=== PATIENT | female | born 1965 | race Asian ===

== ENCOUNTER 2020-06-23 08:06 | Day surgery (SDC) | payer MEDICAID, SELFPAY ==
[~2020-06-23] VITALS: Ht 160 cm; Wt 53.1 kg
[2020-06-23] MEDS ORDERED: diphenhydrAMINE 50 MG/ML VIAL ONE (09:56)
[2020-06-23] MEDS ORDERED: MIDAZOLAM 5 MG/5 ML VIAL ONE (09:56)
[2020-06-23] MEDS ORDERED: fentaNYL citrate 0.05 MG/ML VIAL ONE (09:56)
[2020-06-23] MEDS ORDERED: ANAS1TAB56 PO (11:03)
[2020-06-23] MEDS ORDERED: MIDAZOLAM 2 MG/2 ML VIAL IVP ONE (12:55)
[2020-06-23] MEDS ORDERED: fentaNYL citrate 0.05 MG/ML VIAL IVP ONE (12:55)
== END 2020-06-23 12:30 | disposition home or self-care (01) ==
LOC: MDS 08:06 → MMU 08:12 → MDS 12:30
PROVIDERS: ATTEND Internal Medicine
DX: Z12.11 Encounter for screening for malignant neoplasm of colon (principal); K21.00 Gastro-esophageal reflux disease with esophagitis, without bleeding; K29.70 Gastritis, unspecified, without bleeding; Z85.3 Personal history of malignant neoplasm of breast; Z98.890 Other specified postprocedural states; Z79.899 Other long term (current) drug therapy; Z20.828 Contact with and (suspected) exposure to other viral communicable diseases
CPT/HCPCS: 43239; 45378; 81025; 88305; 88312; 88313; J2250; J3010; J7030; U0003; J1200